=== PATIENT | male | born 1990 | race Caucasian/White ===

== ENCOUNTER 2021-10-26 17:17 | Emergency (ER) | payer OTHER, SELFPAY ==
[2021-10-26 17:18] VITALS: BP 163/103; PULSE 85; RESP 20; TEMP 36.6; O2SAT 100; BMI 25.8
--- NOTE | 2021-10-26 17:44 | ED.RN ---
PATIENT VOMITED SOME HOT DOG AND ABLE TO DRINK COKE. WAITING ON DOCTOR AT THIS TIME. NO DISTRESS AT THIS TIME.
--- NOTE | 2021-10-26 17:51 | ED.VIS.GI ---
HPI HPI - GI History of Present Illness Chief Complaint: Foreign Body Narrative Narrative: 31-year-old male presenting with foreign body sensation in esophagus. He states he ate a hotdog and feels like it was stuck. He did vomit initially and felt like he was short of breath after this but this is resolved. He is not able to tolerate water prior to arrival. He states he was not able to tolerate his own secretions. The patient did have some Coca-Cola initially and states this came back up at the second time when nobody was in the room this went down roughly. Patient still feels foreign body sensation in his esophagus. PFSH PFS Home Medications NK 10/26/21 [History Last Taken Unknown] Allergy/AdvReac Type Severity Reaction Status Date / Time DECONGESTANTS AdvReac Chest Uncoded 10/26/21 17:42 tightness Social History Smoking Status: Never smoker ROS ROS ED Constitutional Constitutional ED: Denies chills or fever(s) ENT ENT ED: Denies rhinorrhea or sore throat Cardiovascular Cardiovascular: Denies chest pain Respiratory/Chest Respiratory/Chest: Denies cough or dyspnea Gastrointestinal Gastrointestinal: Reports nausea, vomiting and other Details: Foreign body esophagus Genitourinary Genitourinary ED: Denies dysuria or hematuria Musculoskeletal Musculoskeletal: Denies arthralgias or myalgias Integumentary Denies rash Neurologic Neurologic: Denies headache(s) or weakness Psychiatric Psychiatric: Denies depression EXAM Physical Exam Const Vital Signs: 10/26/21 17:18 10/26/21 17:43 Temperature 97.9 F Temperature Source Temporal Pulse Rate 85 Respiratory Rate 20 H Respiratory Effort Short of Breath Blood Pressure 163/103 H Blood Pressure Mean 123 Pulse Ox 100 Oxygen Delivery Method Room Air Positive well nourished General Appearance ED: NAD; Negative for pallor HEENT normocephalic and atraumatic Eyes PERRL and EOMs intact bilaterally Resp normal respiratory effort and clear to auscultation bilaterally Cardio regular rate and regular rhythm GI non-tender and non-distended Palpation: soft Neuro Sensorium / Orientation: alert, oriented to person, oriented to place and oriented to time Psych mental status grossly normal Skin General Skin Exam: Negative for jaundice or pallor Lesions: no lesions Rashes: no rashes MDM MDM MDM Narrative Medical decision making narrative: After examining the patient he has no stridor. Is no difficulty breathing. He appears to be tolerating his secretions and we try to give him some Coca-Cola which she already had an initially spit this up but then vomited up a piece of hotdog and now he feels better. He was given a cup of water and was able to drink this. At this point I think he can be discharged home. He will be given follow-up with GI. He is given return precautions. Impression: 1. Foreign body esophagus?resolved Discharge Plan Triage Chief Complaint: Foreign Body ED Provider: Deshawn Diane Dx/Rx/DC Orders Prescriptions: No Action NK RF: 0 Primary Care Provider: Louie Dobson
--- NOTE | 2021-10-26 17:59 | ED.RN ---
PATIENT DRANK THE MONISHA FOR DR BECK AND VOMITED UP A LARGE CHUNK OF HOT DOG. GAVE NEW BAG ONCE FINISHED VOMITING.WENT BACK TO ROOM TO START IV AND DO GLUCAGON AND PATIENT ASKED ABOUT THE SCOPE. EXPLAINED TO PATIENT WE DO BABY STEPS WITH THE COKE AND THE GLUCAGON FIRST BEFORE WE SEDATE AND BRING IN A TEAM TO DO AN INVASIVE PROCEDURE LIKE THE SCOPE. PT STATES HE THINKS IT FEELS BETTER AND IS ABLE TO KEEP WATER DOWN. DR BECK IS AWARE. BECAUSE PATIENT IS SWALLOWING OKAY WE WILL NOT GIVE THE GLUCAGON.
[2021-10-26 18:03] VITALS: BP 115/84; PULSE 74; RESP 15
== END 2021-10-26 18:08 | disposition home or self-care (01) ==
LOC: ED 18:05
PROVIDERS: Emergency Provider Student in an Organized Health Care Education/Training Program; PCP Family Medicine; Visit Provider Student in an Organized Health Care Education/Training Program
DX: T18.128A Food in esophagus causing other injury, initial encounter (principal)
CPT/HCPCS: 99282; A4216